=== PATIENT | male | born 1985 | race Caucasian/White ===

== ENCOUNTER 2024-06-25 08:32 | Inpatient (IN) | payer OTHER ==
[~2024-06-25] VITALS: Ht 172.7 cm; Wt 54.9 kg
[2024-06-25] MEDS ORDERED: LORAZEPAM INJ 2 MG/ML VIAL ONE (08:52)
[2024-06-25] MEDS: LORAZEPAM INJ 2 MG/ML VIAL IV ONE (08:57)
[2024-06-25 08:58] LABS: CALCIUM, SERUM 9.3 mg/dL (8.5-10.1); CARBON DIOXIDE 29 mmol/L (21-32); CHLORIDE 99 mmol/L (98-107); CREATININE 1.2 mg/dL (0.6-1.3); GLUCOSE 106 mg/dL (74-106); POTASSIUM 3.8 mmol/L (3.5-5.1); SODIUM SERUM 137 mmol/L (136-145); UREA NITROGEN, BLOOD 10 mg/dL (7-18)
[2024-06-25] MEDS: CEFEPIME 1 GM in IV D5W 50 ML IV ONE (09:00)
[2024-06-25] MEDS: IV NS 0.9% 1,000 ML BAG IV ONE (09:00)
[2024-06-25 09:01] LABS: INR 1.13 (0.91-1.10); PARTIAL THROMBOPLASTIN TIME 33.2 SEC (24.3-34.3); PROTHROMBIN TIME 11.9 SECS (9.2-11.1)
[2024-06-25 09:04] LABS: ALANINE AMINOTRANSFERASE 13 U/L (12-78); ALBUMIN 2.8 g/dL (3.4-5.0); ALCOHOL, BLOOD < 3 mg/dL (0-10); ALKALINE PHOSPHATASE 72 U/L (46-116); ASPARTATE AMINOTRANSFERASE 10 U/L (15-37); BILIRUBIN,DIRECT 0.2 mg/dL (0.0-0.2); BILIRUBIN,TOTAL 0.4 mg/dL (0.2-1.0); TOTAL PROTEIN, SERUM 8.2 g/dL (6.4-8.2)
[2024-06-25 09:09] LABS: LACTIC ACID 6.7 mmol/L (0.4-2.0)
[2024-06-25 09:12] LABS: BASOPHILS % (AUTO) 0.3 % (0.0-2.0); EOSINOPHILS % (AUTO) 0.1 % (0.0-6.0); HEMATOCRIT 34 % (39-51); HEMOGLOBIN 11.2 g/dL (13.5-17.5); LYMPHOCYTES # (AUTO) 0.7 K/uL (0.8-4.8); LYMPHOCYTES % (AUTO) 7.2 % (20.0-44.0); MEAN CORPUSCULAR HEMOGLOBIN 28 PG (26.0-33.0); MEAN CORPUSCULAR HGB CONC 33 g/dl (31.0-36.0); MEAN CORPUSCULAR VOLUME 86 fL (80-96); MONOCYTES # (AUTO) 0.7 K/uL (0.1-1.30); MONOCYTES % (AUTO) 7.3 % (2.0-12.0); NEUTROPHILS # (AUTO) 7.7 K/uL (1.8-8.9); NEUTROPHILS % (AUTO) 85.1 % (43.0-81.0); PLATELET COUNT (AUTO) 467 K/uL (150-450); RED BLOOD CELL COUNT(AUTO) 3.99 MIL/uL (4.5-6.0); RED CELL DISTRIBUTION WIDTH 14.6 % (11.5-15.0); WHITE BLOOD COUNT (AUTO) 9.1 K/uL (4.3-11.0)
[2024-06-25] MEDS: VANCOMYCIN 1 GM in IV D5W 250 ML IV ONE (09:15)
[2024-06-25] MEDS: ACETAMINOPHEN ES 500 MG TABLET PO ONE (09:26)
[2024-06-25 12:30] VITALS: BP 107/63; TEMP 98.2; O2SAT 97
[2024-06-25] MEDS ORDERED: ZOLPIDEM TARTRATE 5 MG TABLET PO PRN (12:30)
[2024-06-25] MEDS ORDERED: Z GUARD REMEDY 4 OZ OINT TP PRN (12:30)
[2024-06-25] MEDS ORDERED: ONDANSETRON HCL/PF 4 MG/2 ML VIAL IVP PRN (12:30)
[2024-06-25] MEDS ORDERED: MAGNESIUM HYDROXIDE 30 ML UDC PO PRN (12:30)
[2024-06-25] MEDS ORDERED: MAG HYDROX/AL HYDROX/SIMETH 30 ML UDC PO PRN (12:30)
[2024-06-25] MEDS: IV NS 0.9% 1,000 ML IV PRN (13:01)
[2024-06-25] MEDS: PIPERACILLIN /TAZOBACTAM 4.5 G in IV D5W 50 ML IV ONE (13:18)
[2024-06-25 16:00] VITALS: BP 98/56; TEMP 97.3; O2SAT 95
[2024-06-25 20:00] VITALS: BP 101/64; TEMP 98; O2SAT 100
[2024-06-25] MEDS: PIPERACILLIN /TAZOBACTAM 3.375 G in IV D5W 100 ML IV SCH (21:32)
[2024-06-26 01:00] VITALS: BP 110/70; TEMP 97.5; O2SAT 100
[2024-06-26 04:00] VITALS: BP 103/59; TEMP 98.5; O2SAT 100
[2024-06-26 07:30] LABS: BASOPHILS % (AUTO) 0.7 % (0.0-2.0); EOSINOPHILS # (AUTO) 0.1 K/uL (0.0-0.7); EOSINOPHILS % (AUTO) 0.8 % (0.0-6.0); HEMATOCRIT 32 % (39-51); HEMOGLOBIN 10.4 g/dL (13.5-17.5); LYMPHOCYTES # (AUTO) 1.1 K/uL (0.8-4.8); LYMPHOCYTES % (AUTO) 15.3 % (20.0-44.0); MEAN CORPUSCULAR HEMOGLOBIN 28 PG (26.0-33.0); MEAN CORPUSCULAR HGB CONC 33 g/dl (31.0-36.0); MEAN CORPUSCULAR VOLUME 86 fL (80-96); MONOCYTES # (AUTO) 0.6 K/uL (0.1-1.30); MONOCYTES % (AUTO) 8.5 % (2.0-12.0); NEUTROPHILS # (AUTO) 5.1 K/uL (1.8-8.9); NEUTROPHILS % (AUTO) 74.7 % (43.0-81.0); PLATELET COUNT (AUTO) 387 K/uL (150-450); RED BLOOD CELL COUNT(AUTO) 3.72 MIL/uL (4.5-6.0); RED CELL DISTRIBUTION WIDTH 14.7 % (11.5-15.0); WHITE BLOOD COUNT (AUTO) 6.8 K/uL (4.3-11.0)
[2024-06-26 08:00] VITALS: BP 98/62; TEMP 98.1; O2SAT 100
[2024-06-26 09:06] LABS: CALCIUM, SERUM 8.8 mg/dL (8.5-10.1); CREATININE 0.9 mg/dL (0.6-1.3); MAGNESIUM 2.4 mg/dL (1.8-2.4); PHOSPHORUS 2.8 mg/dL (2.5-4.9); POTASSIUM 3.8 mmol/L (3.5-5.1)
[2024-06-26 10:28] LABS: IRON, SERUM 50 ug/dl (50-175); TOTAL IRON BINDING CAPACITY 143 ug/dl (250-450)
[2024-06-26 12:08] VITALS: BP 104/78; TEMP 98.4; O2SAT 100
[2024-06-26 16:00] VITALS: BP 122/70; TEMP 98.2; O2SAT 100
[2024-06-26 20:00] VITALS: BP 99/68; TEMP 98.8; O2SAT 100
[2024-06-26] MEDS: ACETAMINOPHEN 325 MG TABLET PO PRN (22:24)
[2024-06-27] VITALS: BP 97/61; TEMP 98.9; O2SAT 99
[2024-06-27 04:00] VITALS: BP 96/58; TEMP 98.1; O2SAT 100
[2024-06-27 08:00] VITALS: BP 96/60; TEMP 97.9; O2SAT 100
[2024-06-27 16:00] VITALS: BP 109/78; TEMP 98.2; O2SAT 97
[2024-06-27 20:00] VITALS: BP 107/66; TEMP 99; O2SAT 100
[2024-06-27] MEDS: HYDROCODONE/APAP 10/325MG TABLET PO PRN (22:43)
[2024-06-28] VITALS: BP 107/66; TEMP 99; O2SAT 100
[2024-06-28 04:00] VITALS: BP 107/66; TEMP 99; O2SAT 100
[2024-06-28 05:00] VITALS: BP 107/66; TEMP 99; O2SAT 100
[2024-06-28 16:00] VITALS: BP 106/66; TEMP 98.4; O2SAT 99
[2024-06-29] VITALS: BP 92/61; TEMP 98.6; O2SAT 100
[2024-06-29 08:00] VITALS: BP 90/76; TEMP 98.7; O2SAT 100
[2024-06-29] MEDS ORDERED: AMOX-430 PO (12:24)
== END 2024-06-29 15:27 | disposition home health service (06) | DRG 871 ==
LOC: ER 08:39 → TELE1 11:49 → MEDSG1 06-27 09:46
PROVIDERS: ADMIT Internal Medicine; ATTEND Nurse Practitioner Family
DX: A41.9 Sepsis, unspecified organism (principal); K65.1 Peritoneal abscess; E44.0 Moderate protein-calorie malnutrition; E87.20 Acidosis, unspecified; L02.31 Cutaneous abscess of buttock; K50.90 Crohn's disease, unspecified, without complications; Z68.1 Body mass index [BMI] 19.9 or less, adult; D64.9 Anemia, unspecified; E88.09 Other disorders of plasma-protein metabolism, not elsewhere classified; Z87.891 Personal history of nicotine dependence
CPT/HCPCS: 36415; 71045-TC; 80048-TC; 80076-TC; 83540-TC; 83605-TC; 83735-TC; 84100-TC; 85025-TC; 85730-TC; 87040-TC; A4223; G0378; G0480; J0692; J2060; J2543; J3370; J7030; J7050; J7060